=== PATIENT | male | born 2000 | race Caucasian/White ===

== ENCOUNTER 2021-11-03 09:31 | Emergency (ER) | payer BC, SELFPAY ==
--- NOTE | ~2021-11-03 | CT_ITS ---
EXAMINATION: CT ABDOMEN AND PELVIS WITH CONTRAST CLINICAL INFORMATION: Left flank pain in left abdominal pain COMPARISON: None TECHNIQUE: Multidetector volumetric images were obtained from the superior aspect of the liver through the pubic symphysis following administration 85 mL of Omnipaque 350 intravenous contrast. Sagittal and coronal reformatted images were obtained on the technologist's workstation. Oral contrast: No This CT examination was performed using dose optimization techniques as appropriate, variously including the following: *Automated exposure control *Adjustment of mA and/or kV according to patient size (this includes techniques or standardized protocols for targeted exams where dose is matched to indication/reason for exam; i.e. extremities or head) *Use of iterative reconstruction technique DLP: 614 mGy-cm FINDINGS: LUNG BASES: The visualized lung bases are unremarkable. LIVER, GALLBLADDER, AND BILIARY TREE: The liver is normal in size, shape, and attenuation. No focal hepatic lesion or biliary ductal dilatation is present. The gallbladder is unremarkable with no evidence of radiopaque gallstones, gallbladder wall thickening, or obvious pericholecystic inflammatory changes. PANCREAS: Unremarkable. SPLEEN: Unremarkable. ADRENAL GLANDS: Unremarkable. KIDNEYS AND URETERS: The kidneys are normal in size, shape, and attenuation. There is a small tumor radiopaque calculi left UVJ with mild hydroureteronephrosis. No radiopaque renal calculi seen. BLADDER: Unremarkable. GASTROINTESTINAL TRACT: There is scattered stool and gas seen throughout the colon without any significant distention. The small bowel loops are normal caliber. Appendix is normal caliber. No free air or inflammatory process seen. ABDOMINAL WALL: No significant hernia is appreciated. LYMPH NODES: Normal. VASCULAR: Unremarkable. PELVIC VISCERA: Unremarkable. OSSEOUS STRUCTURES: Unremarkable. CT/CT abdomen pelvis w con IMPRESSION: No acute intra-abdominal process seen. 2 mm nonobstructive left UVJ radiopaque calculi with mild hydronephrosis. There are no radiopaque renal calculi seen. Fleischner guidelines were followed.
[2021-11-03 09:49] VITALS: BP 140/73; PULSE 67; RESP 18; TEMP 36.8; O2SAT 100; BMI 25.5
--- NOTE | 2021-11-03 12:14 | ED_ITS ---
HPI - Male Genitourinary General Chief complaint: Urogenital-Male Stated complaint: flank pain Time Seen by Provider: 11/03/21 12:13 Source: patient Mode of arrival: ambulatory Limitations: no limitations History of Present Illness HPI Narrative: 21-year-old male presents for sudden severe left flank pain that started today at 08:00 when he was making eggs. The pain is a 10/10, and is a constant sharp pain in his left flank radiating to his left lower abdomen. He feels like he needs to urinate, and he feels tenesmus. He is nauseous and has vomited 3 times. No abdominal surgeries. Not on any daily medications. Denies dysuria, hematuria, penile discharge, testicular pain. Related Data Previous Rx's Medication Instructions Recorded ketorolac 10 mg tablet 10 mg PO Q6H PRN 5 Days #20 tab 11/03/21 oxycodone 5 mg capsule 5 mg PO TID PRN 2 Days #6 cap 11/03/21 prednisone 20 mg tablet 40 mg PO DAILY 5 Days #10 tab 11/03/21 tamsulosin 0.4 mg capsule (Flomax) 0.4 mg PO BEDTIME 14 Days #14 cap 11/03/21 Allergies Allergy/AdvReac Type Severity Reaction Status Date / Time No Known Allergies Allergy Verified 11/03/21 12:23 Review of Systems Constitutional: Constitutional: Denies body ache(s), Denies chills, Denies fatigue, Denies fever(s), Denies headache(s), Denies malaise and Denies weakness Eyes: Eyes: Denies diplopia ENT: Denies vertigo, Denies dizziness, Denies otalgia, Denies headache(s), Denies mouth pain, Denies post nasal drip, Denies sinus pain, Denies sinus pressure, Denies sore throat and Denies throat swelling Cardiovascular: Cardiovascular: Denies chest pain, Denies syncope, Denies leg edema, Denies lightheadedness, Denies Loss of Consciousness, Denies palpitations and Denies dyspnea Respiratory: Respiratory: Denies chest congestion, Denies cough and Denies dyspnea Gastrointestinal: Gastrointestinal: Reports abdominal pain, Denies melena, Denies hematochezia, Denies coffee ground emesis, Denies constipation, Denies diarrhea, Reports nausea, Reports vomiting and Denies hematemesis Genitourinary: Genitourinary: Denies hematuria, Denies genital pain, Denies dysuria, Reports flank pain, Denies testicular mass, Denies testicular pain and Reports urinary frequency Musculoskeletal: Musculoskeletal: Reports no additional musculoskeletal complaints Neurologic: Denies confusion, Denies vertigo, Denies dizziness, Denies syncope, Denies headache(s) and Denies weakness Psychiatric: Psychiatric: Denies anxiety, Denies confusion and Denies depression Endocrine: Endocrine: Denies fatigue and Denies palpitations Allergic/Immunologic: Allergic/Immunologic: Denies throat swelling PMFSH Social History Social History Advance Directives: Yes Advance Directives Information Provided: No Advance Directives on File: No Physical Exam Vital Signs: Vital Signs: Last Vital Signs Temp 98.2 F 11/03/21 09:49 Pulse 68 11/03/21 12:16 Resp 14 11/03/21 12:57 BP 146/83 H 11/03/21 12:16 Pulse Ox 99 11/03/21 12:16 BMI result Body Mass Index 25.5 Const: General: No confusion Nutritional Appearance: well nourished Orientation/consciousness: No confusion Limitations: no limitations HEENT: Head: Yes normal to inspection, Yes normocephalic and Yes atraumatic Ears: hearing grossly normal bilaterally, external ears normal, TM's normal bilaterally and EAC's normal General nose exam: Normal external nose present Face and sinus: Yes normal facial exam and Yes sinuses nontender Mouth: Normal oral and palatal mucosa present Throat: Yes posterior oropharynx normal Eyes: Conjunctivae: conjunctivae normal Pupils: Equal, round and reactive pupils present EOM: EOMs intact bilaterally Neck: Neck: Yes full ROM, Yes no lymphadenopathy and Yes supple Resp: Effort & Inspection: normal respiratory effort and able to speak in complete sentences Auscultation: clear to auscultation bilaterally, no crackles, no rales, no rhonchi and no wheezes Cardio: Rate: regular rate Rhythm: regular rhythm Heart sounds: S1 normal heart sound present and S2 normal heart sound present GI: Inspection: Yes normal to inspection Palpation (GI): Soft to palpation, nontender, no guarding and not rigid Percussion: Yes normal to percussion Auscultation: normal bowel sounds : General: Yes CVA tenderness on the left Male General Exam: Yes normal external exam Penis: normal penis, circumcised, not edematous, not erythematous, no vesicles and no ulcerations Meatus: meatus normal, no meatla discharge and No Blood at meatus present Scrotum: scrotum normal and testes descended bilaterally Testes: Testes normal, testicular lie normal, epididymides normal, no testicular mass, no testicular swelling and no testicular tenderness Back/Spine/Pelvis: Back: CVA tenderness Skin: General skin exam: no rashes or lesions noted Neuro: General: No confusion Cranial nerves: Yes Equal, round and reactive pupils present Extrem: General: Yes normal to inspection and Yes full ROM Psych: Appearance: grossly normal Affect: normal affect Attitude: cooperative Thought process: Normal thought process present Course Course Course Narrative: 21-year-old male presents with sudden severe left-sided flank pain that started at 08:00 this morning. On exam, patient has severe left CVA tenderness, is diffusely tender and guarding throughout his entire abdomen. Patient is pale and shaking from pain. Labs remarkable for leukocytosis of 13.5. Most likely this is inflammatory not infectious. Patient's urine shows blood, but no infection, no white blood cells, no nitrates, no leukocyte esterase. CT shows a 2 mm nonobstructing left stone at the UVJ junction. Mild hydronephrosis. After dilaudid and fluids and Zofran, patient is feeling much better, states his pain is a 1/10. Will give Flomax, prednisone, ketorolac, pain medication, have patient follow-up with Urology. Give return precautions of fever, dysuria, worsening pain. Patient verbalized agreement understanding of the plan. CT/CT abdomen pelvis w con IMPRESSION: No acute intra-abdominal process seen. ? 2 mm nonobstructive left UVJ radiopaque calculi with mild hydronephrosis. ? There are no radiopaque renal calculi seen. MDM - Male Genitourinary Lab Data Result diagrams: 11/03/21 12:49 11/03/21 12:49 Labs: Lab Results 11/03/21 11/03/21 11/03/21 Range/Units 12:17 12:49 12:49 WBC 13.5 H (4.8-10.8) X10*3/uL RBC 5.48 (4.60-5.80) X10*6/uL Hgb 15.6 (14.0-18.0) g/dl Hct 46.7 (42.0-52.0) % MCV 85.2 (80.0-98.0) fL MCH 28.5 (27.0-33.0) pg MCHC 33.4 (31.0-36.0) g/dl RDW 12.2 (11.0-16.0) % Plt Count 214 (160-400) X10*3/uL MPV 9.9 (9.4-12.4) fL Immature Gran % (Auto) 0.4 (0.0-0.4) % Neut % (Auto) 88.5 H (45-73) % Lymph % (Auto) 6.8 L (20-40) % [place] % (Auto) 4.1 (2-11) % Eos % (Auto) 0.1 (0-4) % Baso % (Auto) 0.1 (0-2) % Lymph # (Auto) 0.9 L (1.2-4.9) X10*3/uL [place] # (Auto) 0.6 (0.1-1.2) X10*3/uL Eos # (Auto) 0.0 (0.0-0.4) X10*3/uL Baso # (Auto) 0.0 (0.0-0.2) X10*3/uL Abs Immat Gran (auto) 0.05 H (0.00-0.03) X10*3/uL Absolute Neuts (auto) 12.0 H (2.0-8.3) x10*3/uL Absolute Nucleated RBC 0.000 (0.0-0.012) X10*3/uL Nucleated RBC % (auto) 0.0 (0.0-0.2) /100WBC Sodium 140 (135-145) mmol/L Potassium 4.9 (3.3-5.1) mmol/L Chloride 103 (96-108) mmol/L Carbon Dioxide 27 (22-29) mmol/L Anion Gap 15 (12-20) BUN 11 (9-16) mg/dL Creatinine 1.30 (0.5-1.4) mg/dL Estim Creat Clear Calc 110.3 Estimated GFR > 60 Random Glucose 108 (60-115) mg/dL Calcium 10.5 H (8.4-10.2) mg/dL Total Bilirubin 0.6 (0.0-1.0) mg/dL AST 19 (5-37) U/L ALT 20 (0-40) U/L Alkaline Phosphatase 80 (39-117) U/L Total Protein 8.4 H (6.5-8.0) g/dL Albumin 5.2 H (3.5-5.0) g/dL Lipase 7 L (8-78) U/L Urine Color YELLOW Urine Appearance HAZY Urine pH 6.0 (5.0-8.0) Ur Specific [place] >= 1.030 H (1.005-1.025) Urine Protein TRACE (NEG-TRACE) MG/DL Urine Glucose (UA) 100 H (NEG) MG/DL Urine Ketones NEG (NEG) MG/DL Urine Blood 3+ H (NEG) Urine Nitrite NEG (NEG) Ur Leukocyte Esterase NEG (NEG) Urine RBC 30-49 H (0) /HPF Urine WBC 0-2 (0-4) /HPF Ur Squamous Epith Cells NONE /LPF Calcium Oxalate Crystal 1+ /LPF Urine Bacteria NONE /LPF Urine Mucus 1+ /LPF Discharge Plan Discharge Clinical Impression: Kidney stone on left side Patient Disposition: Home, Self-Care Instructions: Kidney Stones (ED) Additional Instructions: Please callDr Adams, Urology at [phone] today. I would like you to be seen by early next week for follow-up appointment. Please return to the emergency room if you have pain with urination, fevers, w orsening back or abdominal pain. I have prescribed ketorolac, this is like strong ibuprofen, do not take any ibuprofen containing products wire taking ketorolac. I have also prescribed prednisone, this is helpful with inflammation please take this for 5 days. I also prescribed Flomax for you, as we discussed, some urologist think this helps to pass urine. I have prescribed oxycodone for you please take it if your pain is severe. Prescriptions: New tamsulosin [Flomax] 0.4 mg capsule 0.4 mg PO BEDTIME 14 Days Qty: 14 0RF ketorolac 10 mg tablet 10 mg PO Q6H PRN (Reason: pain) 5 Days Qty: 20 0RF prednisone 20 mg tablet 40 mg PO DAILY 5 Days Qty: 10 0RF oxycodone 5 mg capsule 5 mg PO TID PRN (Reason: pain) 2 Days Qty: 6 0RF Referrals: Zhen Adams MD [Physician] - 2 days Interventions: ED Discharge Assessment Last Done: 11/03/21 14:48
[2021-11-03 12:16] VITALS: BP 146/83; PULSE 68; RESP 18; O2SAT 99
[2021-11-03 12:22] LABS: Appearance Urine HAZY; Color Urine YELLOW; Glucose Urine UA 100 MG/DL (NEG); Leukocyte Esterase Urine NEG (NEG); Nitrite Urine NEG (NEG); Specific Gravity - Urine >= 1.030 (1.005-1.025); UACC Culture Trigger NO; Urine Blood 3+ (NEG); Urine Ketones NEG (NEG); Urine Protein TRACE MG/DL (NEG-TRACE)
[2021-11-03 12:40] LABS: Mucus Urine 1+ /LPF; RBC Urine 30-49 /HPF (0); WBC Urine 0-2 /HPF (0-4)
[2021-11-03 12:41] LABS: Calcium Oxalate Crystals Urine 1+ /LPF
[2021-11-03 12:53] LABS: MANUAL DIFF FLAG NO
[2021-11-03 12:56] LABS: Basophils Percent Auto 0.1 % (0-2); Eosinophils Percent Auto 0.1 % (0-4); Hematocrit 46.7 % (42.0-52.0); Hemoglobin 15.6 g/dl (14.0-18.0); Imm Gran Abs Auto 0.05 X10*3/uL (0.00-0.03); Imm Gran Pct Auto 0.4 % (0.0-0.4); Lymphocytes Absolute Auto 0.9 X10*3/uL (1.2-4.9); Lymphocytes Percent Auto 6.8 % (20-40); Mean Corpuscular HGB Conc 33.4 g/dl (31.0-36.0); Mean Corpuscular Hemoglobin 28.5 pg (27.0-33.0); Mean Corpuscular Volume 85.2 fL (80.0-98.0); Mean Platelet Volume 9.9 fL (9.4-12.4); Monocytes Absolute Auto 0.6 X10*3/uL (0.1-1.2); Monocytes Percent Auto 4.1 % (2-11); Neutrophils Percent Auto 88.5 % (45-73); Platelet Count 214 X10*3/uL (160-400); Red Blood Count 5.48 X10*6/uL (4.60-5.80); Red Cell Distribution Width 12.2 % (11.0-16.0); White Blood Count 13.5 X10*3/uL (4.8-10.8)
[2021-11-03 12:57] VITALS: RESP 14
[2021-11-03] MEDS: HYDROmorphone HCl 1 MG/ML SYRINGE IVPUSH (12:57)
[2021-11-03] MEDS: ondansetron HCL 4 MG/2 ML VIAL IVPUSH (12:57)
[2021-11-03] MEDS: 0.9 % Sodium Chloride 1,000 ML 999 ML IV (13:01)
[2021-11-03 13:26] LABS: Alanine Aminotransferase 20 U/L (0-40); Albumin Level 5.2 g/dL (3.5-5.0); Alkaline Phosphatase 80 U/L (39-117); Anion Gap 15 (12-20); Aspartate Amino Transferase 19 U/L (5-37); Bilirubin Total 0.6 mg/dL (0.0-1.0); Blood Urea Nitrogen 11 mg/dL (9-16); Calcium 10.5 mg/dL (8.4-10.2); Carbon Dioxide 27 mmol/L (22-29); Chloride 103 mmol/L (96-108); Creatinine Clr Calc Pharmacy 110.3; Estimated Glomerular Filt Rate > 60; Glucose Random 108 mg/dL (60-115); Lipase 7 U/L (8-78); Potassium 4.9 mmol/L (3.3-5.1); Sodium 140 mmol/L (135-145); Total Protein 8.4 g/dL (6.5-8.0)
[2021-11-03] MEDS: iohexoL 350 MG/ML 100 ML INFUS..BTL 85 ML IV (13:52)
[2021-11-03] MEDS: Ketorolac Tromethamine 15 MG/ML VIAL IVPUSH (14:40)
== END 2021-11-03 14:50 | disposition home or self-care (01) ==
PROVIDERS: Physician Assistant; Emergency Provider Emergency Medicine
DX: N13.2 Hydronephrosis with renal and ureteral calculous obstruction (principal)
CPT/HCPCS: 36415; 74177; 80053; 81001; 83690; 85025; 96361; 96374; 96375; 99284; 99285; J1170; J1885; J2405; Q9967